=== PATIENT | female | born 1975 | race Caucasian/White ===

== ENCOUNTER 2017-11-21 02:31 | Emergency (ER) | payer OTHER ==
[2017-11-21] MEDS ORDERED: MORPHINE SULFATE 4 MG/ML DISP.SYRIN. IM (03:45)
[2017-11-21] MEDS ORDERED: LIDOCAINE 2% 20 ML VIAL. IJ (03:45)
== END 2017-11-21 05:00 | disposition home or self-care (01) ==
LOC: ER 02:31
DX: S61.305A Unspecified open wound of left ring finger with damage to nail, initial encounter (principal); S61.303A Unspecified open wound of left middle finger with damage to nail, initial encounter; W31.89XA Contact with other specified machinery, initial encounter; Y93.89 Activity, other specified; Y92.89 Other specified places as the place of occurrence of the external cause; Y99.8 Other external cause status
CPT/HCPCS: 64450; 73130; 96374; 99284